=== PATIENT | male | born 1930 ===

== ENCOUNTER 2020-01-31 13:40 | Day surgery (SDC) | payer BC ==
[~2020-01-31 13:40] MED LIST: ACET-2154 PO; BUPIVACAINE PF 0.5% 30 ML VIAL ONE; CEFAZOLIN 1 G VIAL IM ONE; ENOX40DI SQ; FENTANYL CITRATE 100 MCG/2 ML AMPUL ONE; HYDR-4384 PO; IV NORMAL SALINE 1000 ML BAG IV ONE; LIDOCAINE HCL 1% 20 ML VIAL ONE; LIDOCAINE-MPF 2% 5 ML VIAL IJ ONE; MAG-82 PO; MAGN400O6 PO; PROPOFOL 200 MG/20 ML BOTTLE IV ONE; ZOLP5TAB8 PO
== END 2020-01-31 14:35 | disposition home or self-care (01) ==
LOC: DS 13:40
PROVIDERS: ATTEND Podiatrist Foot & Ankle Surgery
DX: L97.829 Non-pressure chronic ulcer of other part of left lower leg with unspecified severity (principal); M79.89 Other specified soft tissue disorders; K21.9 Gastro-esophageal reflux disease without esophagitis; D64.9 Anemia, unspecified; Z79.899 Other long term (current) drug therapy; Z98.890 Other specified postprocedural states
CPT/HCPCS: 87070; 87075; A4649; J0690; J3010; J3490; J7030